=== PATIENT | female | born 1980 | race Caucasian/White ===

== ENCOUNTER → 2019-02-11 | Outpatient (REF) | payer OTHER ==
[~2019-02-11] MED LIST: MOTR200T44 PO; PRENTAB54 PO
[2019-02-11 13:40] LABS: APPEARANCE, URINE CLEAR (CLEAR); BACTERIA, URINE AUTO NEGATIVE (NEGATIVE); BILIRUBIN, URINE AUTO NEGATIVE (NEGATIVE); BLOOD, URINE BLOOD NEGATIVE (NEGATIVE); COLOR, URINE YELLOW (YELLOW); GLUCOSE, URINE (UA) AUTO NEGATIVE (NEGATIVE); KETONE, URINE AUTO NEGATIVE (NEGATIVE); LEUKOCYTE ESTERASE, URINE AUTO NEGATIVE (NEGATIVE); NITRITE, URINE AUTO NEGATIVE (NEGATIVE); PROTEIN, URINE AUTO NEGATIVE (NEGATIVE); RBC, URINE AUTO 1 /HPF (0-3); SPECIFIC GRAVITY URINE AUTO 1.006 (1.002-1.035); SQUAMOUS EPITHELIAL CELL UR AU 0 /HPF (0-6); UROBILINOGEN, URINE AUTO 0.2 mg/dL (0.0-2.0); WBC, URINE AUTO 0 /HPF (0-3)
== END ==
LOC: M LAB REF 12:53
PROVIDERS: ATTEND Family Medicine
DX: N39.0 Urinary tract infection, site not specified (principal)

== ENCOUNTER → 2019-09-11 | Outpatient (CLI) | payer OTHER ==
--- NOTE | 2019-09-11 17:25 | REP ---
OB ULTRASOUND: Real-time sonographic evaluation of gravid uterus performed. There is a single living intrauterine gestation. The estimated gestational age is 14 weeks 4 days, EDC 03/07/2020. BPD 27 mm = 14 weeks 6 days HC 104 mm = 14 weeks 6 days AC 77 mm = 14 weeks 1 day Femur length 16 mm = 14 weeks 4 days HC/AC ratio 1.34, normal range 1.11 to 1.30. Estimated weight 98 grams, 33rd percentile. Cervix closed and measures 4.4 cm in length. heart rate 139 beats per minute. There is no subchorionic hemorrhage. No maternal adnexal region abnormality is seen.
== END ==
LOC: M WHC 12:55
PROVIDERS: ATTEND Advanced Practice Midwife
DX: Z36.87 Encounter for antenatal screening for uncertain dates (principal); O09.521 Supervision of elderly multigravida, first trimester; Z3A.14 14 weeks gestation of pregnancy

== ENCOUNTER → 2019-09-17 | Outpatient (CLI) | payer OTHER | LOC: M PLALAB 10:27 | PROVIDERS: ATTEND Advanced Practice Midwife | DX: O09.512 Supervision of elderly primigravida, second trimester (principal) ==

== ENCOUNTER → 2019-10-16 | Outpatient (CLI) | payer OTHER ==
--- NOTE | 2019-12-07 10:39 | REP ---
OBSTETRIC ULTRASOUND FOR ANATOMY Delay in reporting results from malfunction of the hospital computer system as the result of a malware attack. FINDINGS: There is a single intrauterine gestation. position is variable. The placenta is posterior with grade 1 maturity. THERE IS A COMPLETE PLACENTA PREVIA. THE PLACENTA EXTENDS COMPLETELY ACROSS THE INTERNAL CERVICAL OS AND THEN ONTO THE POSTERIOR UTERINE WALL. There is no placenta abruptio. Subjectively the amniotic fluid volume is normal. The heart rate is 149 beats per minute. Cervix measures 4.0 cm in length. The composite gestational age by [facility] is 19 weeks 3 days. The estimated date of confinement (EDC) is 03/08/2020. Estimated weight is 289 grams. This is the 34th percentile. There is a question of uterine contraction in the anterior-inferior uterine segment versus fibroid. The following anatomic structures are identified and are unremarkable: Cisterna magna, cavum septum pellucidum, thalami, stomach, kidneys, right and left cardiac outflow tracts, bladder, three-vessel cord, cord insertion, upper and lower extremities, and upper lip and face. Suboptimally demonstrated because of position are the spine and four chamber view of the heart. A follow-up study dedicated to these structures might be considered. Additionally, follow-up for evaluation for placental migration is recommended. IMPRESSION: COMPLETE PLACENTA PREVIA as discussed above. Fibroid versus uterine contraction in the lower anterior uterine segment. Suboptimal demonstration of the four chamber view of the heart. MTDD
== END ==
LOC: M WHC 12:27
PROVIDERS: ATTEND Advanced Practice Midwife
DX: O09.522 Supervision of elderly multigravida, second trimester (principal)

== ENCOUNTER → 2019-11-19 | Outpatient (CLI) | payer OTHER ==
--- NOTE | 2019-12-14 11:32 | REP ---
FOLLOW-UP OBSTETRICAL ULTRASOUND CLINICAL: Anatomical follow-up evaluation. COMPARISON: 10/16/2019. FINDINGS: Ultrasound examination is limited due to body habitus and positioning. Fetus is identified in breech presentation. motion was noted. Posterior placenta again demonstrates complete placenta previa. The amniotic fluid volume is subjectively normal. heart rate equals 140 beats per minute. MEASUREMENTS: BPD 51 mm 21 weeks 4 days HC 218 mm 23 weeks 6 days AC 189 mm 23 weeks 5 days FL 41 mm 23 weeks 2 days HL 40 mm 23 weeks 2 days Estimated age by current measurements 23 weeks 1 day with estimated date of delivery 03/16/2020. Estimated weight 588 grams (8th percentile). Current examination demonstrates normal four chamber heart views and cardiac ventricular outflow tracts. The spine is again incompletely evaluated, and the technologist makes note of a possible malformation on the lower thoracic/upper lumbar level, which is not identifiable on given static images. IMPRESSION: * Single live intrauterine demonstrating relatively appropriate growth. * Complete placenta previa again noted. * Limited evaluation of the spine with suggestions for possible malformation at the lower thoracic/upper lumbar level. Follow-up is recommended. MTDD
== END ==
LOC: M WHC 10:29
PROVIDERS: ATTEND Advanced Practice Midwife
DX: Z36.89 Encounter for other specified antenatal screening (principal); Z3A.23 23 weeks gestation of pregnancy

== ENCOUNTER → 2020-02-10 | Outpatient (REF) | payer OTHER | LOC: M SFHCWAGY 17:06 | PROVIDERS: ATTEND Obstetrics & Gynecology | DX: O24.313 Unspecified pre-existing diabetes mellitus in pregnancy, third trimester (principal); Z3A.00 Weeks of gestation of pregnancy not specified ==

== ENCOUNTER 2020-02-29 07:47 | Inpatient (IN) | payer OTHER ==
[2020-02-29] VITALS (17 sets, daily range): BP systolic 107–140; BP diastolic 54–82
[~2020-02-29] VITALS: Ht 162.6 cm; Wt 99.0 kg
[2020-02-29] MEDS ORDERED: LACTATED RINGER'S 1000 ML IV STA (08:13)
[2020-02-29 10:40] LABS: HEMATOCRIT 32.7 % (36.0-47.0); HEMOGLOBIN 10.5 g/dl (12.0-15.5); MEAN CORPUSCULAR HEMOGLOBIN 28.5 pg (27.0-33.0); MEAN CORPUSCULAR HGB CONC 32.1 g/dl (32.0-36.5); MEAN CORPUSCULAR VOLUME 88.9 fl (80.0-96.0); PLATELET COUNT, AUTOMATED 248 10^3/uL (150-450); RED BLOOD COUNT 3.68 10^6/uL (4.00-5.40)
[2020-02-29] MEDS: miSOPROStol 50 MCG 1/2 TAB (S0191) PO SCH ×2 (12:01→16:08)
--- NOTE | 2020-02-29 12:24 | HPEPDOC ---
Obstetrical History & Physical General Date of Admission Feb 29, 2020 at 07:47 Primary Care Physician: SHANTE BRITT CNM History of Present Illness Sandra is a 40 y/o at 39weeks by 2nd trimester ultrasound at 14.4 weeks, JULIA 03/07/20, who presents today for IOL for Pre-existing Type 2 Diabetes and AMA. She reports active movement, no regular contractions and denies vaginal bleeding, LOF. Blood glucoses at home have been well controlled with dietary changes. History further significant for placenta previa that resolved as of 10/6 per ultrasound at [facility]. She had a recent COVID exposure and tests negative today, precautions taken as per CDC recommendations. Chief Complaint: Induction of labor (Type 2 DM, AMA) Information Provided By: Patient Age: 40 : 5 Term: 3 Pre-term: 0 Abortions: 1 Livin Care Care: Good Care Dating Final EDC: Mar 07, 2020 Final EDC by: 2nd trimester (US) (14.4 weeks) EGA at Admission: 39.0 Antepartum Course Diagnos(e)s Type 2 DM diagnosed in early Late to care at 14.4weeks. AMA Placenta previa resolved as of 10/6 per [facility] Height (inches): 64 Pre- weight (lbs.): 205 Admission Weight (lbs.): 218 Change in Weight (lbs.): 13 Past Medical History Past Obstetrical History #1: Past Obstetrical History: Primgravida Date of Delivery: Nov 27, 2008 Gestation: 41 Type of Delivery: Spontaneous Vaginal Del. Sex of : Female (7lbs 15 oz.) Past Obstetrical History #2: Past Obstetrical History: Multigravida Date of Delivery: Nov 20, 2010 Gestation: 41 Type of Delivery: Spontaneous Vaginal Del. Sex of Infant: Female (6lbs 15 oz.) Complications: No Past Obstetrical History #3: Past Obstetrical History: Multigravida Date of Delivery: Oct 06, 2013 Gestation: 40 Type of Delivery: Spontaneous Vaginal Del. Sex of : Male (7lb 6 oz.) Complications: No EYEGLASS FITTER History: Ectopic (2004), Abnormal Pap (Colposcopy done), Human papillomavirus(HPV) Past Medical History Medical History PCOS Type 2 DM diagnosed in early , diet controlled Surgical History: Diagnostic laparoscopy, Tonsilectomy Family History Significant Family History: Cancer (Mother - Unknown Type) Social History Marital Status: Single Family situation: Spouse/partner home (Life Partner Armen Ibarra) Psychosocial History: No pertinent psych hx * Smoker: non-smoker Alcohol: Denies Drugs: denies Imunizations Tdap status: current (12/29/19) Influenza Status: declined Allergies Coded Allergies: No Known Allergies (Verified , 10/25/04) Medications Scheduled Multivitamins/ ( Ad) 1 Tab Tab, 1 TAB PO DAILY Physical Examination Physical Examination GENERAL: Alert and oriented times three. ABDOMEN: Gravid and non-tender to touch. FETUS: Is vertex (VTX) by sterile vaginal examination (SVE), fetus is vertex (VTX) by Harish. EFW 7.5-8lbs. HEART RATE: Regular rate and rhythm. LUNGS: Clear to auscultation (CTA) bilaterally. No accessory muscle use. EXTREMITIES: No edema. No clonus. Deep tendon reflexes (DTRs) + 2. Laboratory Data 24H LABS Laboratory Tests 2 02/29/20 08:20: Coronavirus (COVID-19)(PCR) NEGATIVE 02/29/20 09:50: Serology Scanned Report Hepatitis B Testing 02/29/20 10:26: Nucleated Red Blood Cells % (auto) 0.0 CBC/BMP Laboratory Tests 02/29/20 10:26 Pertinent Laboratoy Data Blood Type: O+ RBC Antibody Screen: Negative HIV: Negative Hepatitis B: Negative Hepatitis C: Negative Rapid Plasma Reagin: Nonreactive Rubella: Immune Chlamydia/Gonorrhea: Negative Group B Streptococcus: Negative Glucose Tolerance Test: 139 (early 10/15/19) Diag/Inter Therapy 10/15/19--HgbA1C 4.9 11/03/19 -- 3hrGTT 84/213/188/76 Steroid Therapy Steroid Therapy: No Vaginal Examination Dilation: Fingertip Effacement: 40% Station: -3 Cervical Consistency: Soft Cervical Position: Middle Presentation: Cephalic presentation Assessment Heart Rate (FHR): 120 Variability: Moderate Accelerations: Positive Decelerations: None Tocometer Contractions: No Multi-drug resistant Organism: No history of MDRO Assessment/Plan Assessment IUP at 39weeks. Type 2 Diabetes Mellitus AMA Category 1 FHT GBS Negative Late to Care at 14.4weeks COVID Exposure, Rapid Test Negative Plan Admit and orient to Labor and Delivery. Activity as Tolerated. Diet: Diabetic Regular Diet Fingersticks 2hrs postprandial, until active labor. Group B Streptococcus (GBS) negative. Labs and intravenous (IV) per unit protocol. Counseled on Pitocin, Cytotec, Cervical Balloon, and induction of labor (IOL). Lactated Ringers (LR): Bolus 500 mL prior to epidural then per policy. Consult Anesthesia for epidural placement. Anticipate normal spontaneous delivery (). C-S as appropriate. SHANTE BRITT CNM Feb 29, 2020 12:23
[2020-02-29] MEDS ORDERED: ASPI81CH33 PO (14:44)
[2020-02-29] MEDS: LR 1,000 ML IV SCH (20:44)
[2020-02-29] MEDS ORDERED: OXYTOCIN DRIP 30 UNITS in IV 1 EA IV SCH (20:45)
--- NOTE | 2020-02-29 21:21 | IPNPDOC ---
Obstetrical Progress Note Date of Service Feb 29, 2020 Subjective Patient feeling some discomfort with contractions. Denies vaginal bleeding, LOF. Reports active movement. Objective Vital Signs Date Time Temp Pulse Resp B/P (MAP) Pulse Ox O2 Delivery O2 Flow Rate FiO2 02/29/20 20:44 76 18 107/58 (74) 02/29/20 19:56 98.2 02/29/20 10:15 99 Room Air Assessment Heart Rate (FHR): 125 Variability: Moderate Accelerations: Positive Decelerations: None Heart Rate Tracing: Category I Tocometer Contractions: Yes Frequency: regular, other (4-5min) Duration: greater than 60 seconds Strength: palpated as mild, resting tone palp/soft Sterile Vaginal Examination Dilation: 1cm Effacement (%): 50% Station: -3 Cervical Consistency: Firm Cervical Position: Middle Postion/Presentation: Cephalic presentation Assessment and Plan Age: 40 : 5 Term: 3 Pre-term: 0 Abortions: 1 Livin EGA at Admission: 39.0 Status: Reassuring Group B Streptococcus: Negative Anticipate: Vaginal Delivery Additional Comments Cook's catheter placed at 2029 with 60mL NS in uterine and 40mL in vaginal balloon, taped to leg. Patient tolerated procedure well. Plan to start Pitocin. SHANTE BRITT CNM Feb 29, 2020 21:21
[2020-02-29] MEDS ORDERED: FENTANYL 2MCG/ML ROPIVACAINE 0.2% IN 0.9% NACL 100ML IVBAG As Ordered ONE (23:26)
[2020-03-01] VITALS (77 sets, daily range): BP systolic 83–126; BP diastolic 45–72
[2020-03-01] MEDS: FENTANYL/ROPIVACAINE/NACL BAG 100 ML EPIDURAL SCH ×2 (00:26→08:27)
[2020-03-01] MEDS ORDERED: EPIDURAL COMMENT XX SCH (01:15)
[2020-03-01] MEDS ORDERED: REFRIGERATOR IV KEYS XX PRN (01:15)
[2020-03-01] MEDS ORDERED: NALOXONE INJ 0.4MG/1ML VIAL (J2310 PER 1MG) IV PRN (01:15)
[2020-03-01] MEDS ORDERED: ePHEDrine SULFATE 25 MG/5 ML(5MG/ML) SYRINGE IV PRN (01:15)
[2020-03-01] MEDS ORDERED: EPIDURAL/PCA KEYS XX PRN (01:15)
[2020-03-01] MEDS ORDERED: ONDANSETRON 4MG/2ML VIAL IV PRN ×2 (01:15→13:30)
[2020-03-01] MEDS ORDERED: LACTATED RINGER'S 1000 ML IV PRN (01:15)
[2020-03-01] MEDS ORDERED: diphenhydrAMINE 50MG/ML VIAL (J1200) IV PRN (01:15)
[2020-03-01] MEDS: LR 1,000 ML IV SCH ×2 (05:15→08:57)
[2020-03-01] MEDS: ePHEDrine SULFATE 25 MG/5 ML(5MG/ML) SYRINGE IV PRN ×2 (10:42→10:51)
--- NOTE | 2020-03-01 11:17 | IPNPDOC ---
Obstetrical Progress Note Date of Service Mar 01, 2020 Subjective Patient is comfortable with epidural. No LOF/VB. Objective Vital Signs Date Time Temp Pulse Resp B/P (MAP) Pulse Ox O2 Delivery O2 Flow Rate FiO2 03/01/20 10:20 73 20 109/59 (76) 03/01/20 09:37 03/01/20 07:30 Room Air 03/01/20 07:29 98.8 Assessment Heart Rate Tracing: Category I Tocometer Contractions: Yes Frequency: every 2-5 min. Sterile Vaginal Examination Dilation: 5 cm Effacement (%): 80% Station: 0 Cervical Consistency: Soft Cervical Position: Anterior Postion/Presentation: Cephalic presentation Assessment and Plan Age: 40 : 5 Term: 3 Pre-term: 0 Abortions: 1 Livin EGA at Admission: 39 (+1) Status: Reassuring Group B Streptococcus: Negative Anticipate: Vaginal Delivery Additional Comments Reassuring maternal and status AROM, clear fluid Continue ANN Rondon DO Mar 01, 2020 11:17
[2020-03-01] MEDS ORDERED: OXYTOCIN DRIP 30 UNITS in IV 1 EA IV SCH (13:26)
[2020-03-01] MEDS ORDERED: LR 1,000 ML IV SCH (13:26)
[2020-03-01] MEDS ORDERED: RHOGAM 300 MCG (1500 IU) INJ (J2790) IM SCH (13:30)
[2020-03-01] MEDS ORDERED: MEASLES,MUMPS,RUBELLA VACCINE INJ (MMR-II) (90707) SC SCH (13:30)
[2020-03-01] MEDS ORDERED: BENZOCAINE 20% HEMORRHOIDAL OINTMENT 28GM TUBE TOP PRN (13:30)
[2020-03-01] MEDS ORDERED: ACETAMINOPHEN TAB 650MG DOSE (2X325MG) PO PRN (13:30)
[2020-03-01] MEDS ORDERED: PROMETHAZINE 25 MG TAB PO PRN (13:30)
[2020-03-01] MEDS ORDERED: DOCUSATE SODIUM 100MG CAPSULE PO PRN (13:30)
[2020-03-01] MEDS ORDERED: IBUPROFEN 600MG TAB PO PRN (13:30)
--- NOTE | 2020-03-01 13:44 | DNPDOC ---
[facility] Delivery Note Delivery Note DATE OF DELIVERY: 03/01/2020 TIME OF DELIVERY: 1245 Spontaneous vaginal delivery. CHEMICAL DEPENDENCY ATTENDANT: Dr. Zane Casey DO FACOG ANESTHESIA: Epidural. LACERATION: None ESTIMATED BLOOD LOSS: 200 mL. FINDINGS: 6 pound 6 ounce (2880 g). Female infant, Score, 8 and 9. DELIVERY SUMMARY: The active phase and second stage of labor progressed in normal fashion.. She received Pitocin augmentation throughout her labor course. The head delivered in the ROSALBA position, and restituted ROT. No nuchal cord was noted. The anterior shoulder delivered with gentle downward guidance and the remainder of the body delivered with ease. The baby was placed on the patient's chest. Delayed cord clamping occurred for approximately 1 minute. The cord was then doubly clamped and cut. IV Pitocin was bolused to actively manage the third stage of labor. The placenta delivered intact without any difficulty within 10 minutes of delivery. The uterine fundus was noted to be firm and 2 cm below the umbilicus. The cervix, vagina, vulva and perineum were inspected.. No laceration was noted. Excellent hemostasis was noted. Sponge, needle and instrument counts were correct per protocol. DO JEAN Lucas JONATHAN R. DO Mar 01, 2020 13:44
[2020-03-01] MEDS ORDERED: SLF 3 ML SYR IV PRN (15:00)
[2020-03-01] MEDS: SLF 3 ML SYR IV SCH (22:00)
[2020-03-01] MEDS: ACETAMINOPHEN 500 MG TAB PO PRN (23:15)
[2020-03-02 06:00] VITALS: BP 110/69
[2020-03-02] MEDS: SLF 3 ML SYR IV SCH (06:02)
--- NOTE | 2020-03-02 07:13 | IPNPDOC ---
Progress Note Date of Service: Mar 02, 2020 Day#: 1 Progress Note SUBJECT: Status post . She has been ambulating, voiding spontaneously without issue and tolerating regular diet. Lochia decreasing/minimal. Patient is ambulating well. OBJECTIVE: VITAL SIGNS: Within normal limits, afebrile. Alert and oriented times three. Abdomen: Fundus firm at U-2. Soft, NTTP. ASSESSMENT: Status post uncomplicated spontaneous vaginal delivery. Vitals within normal limits, afebrile, hemodynamically stable with no evidence of infection. PLAN: Tylenol and Motrin for pain. Routine instructions/precautions reviewed. Routine PP visit in 6 weeks in clinic. VS, I&O, 24H, Fishbone Vital Signs/I&O Vital Signs Date Time Temp Pulse Resp B/P (MAP) Pulse Ox O2 Delivery O2 Flow Rate FiO2 03/02/20 06:00 96.8 56 18 110/69 (83) 100 Room Air I&O- Last 24 Hours up to 6 AM 03/02/20 06:00 Intake Total 2910 ml Output Total 1700 ml Balance 1210 ml Laboratory Data 24H LABS Laboratory Tests 2 03/01/20 11:26: Bedside Glucose (Misc Panel) 76 ANN MONTANEZ DO Mar 02, 2020 07:13
[2020-03-02] MEDS: IBUPROFEN 800 MG TAB PO PRN ×2 (08:50→20:33)
[2020-03-02] MEDS: PRENATAL VITAMINS CHEWABLE TABLET PO SCH (08:50)
[2020-03-02] MEDS: ACETAMINOPHEN 500 MG TAB PO PRN (17:26)
[2020-03-02 17:46] VITALS: BP 130/72
[2020-03-03 06:00] VITALS: BP 138/79
[2020-03-03] MEDS: IBUPROFEN 800 MG TAB PO PRN (07:41)
[2020-03-03] MEDS: PRENATAL VITAMINS CHEWABLE TABLET PO SCH (08:54)
[2020-03-03] MEDS: ACETAMINOPHEN 500 MG TAB PO PRN (08:57)
== END 2020-03-03 11:30 | disposition home or self-care (01) | DRG 560 ==
LOC: M LDI 07:47 → M OBS 03-01 15:54
PROVIDERS: ADMIT Advanced Practice Midwife; ATTEND Obstetrics & Gynecology
PROC: 3E0P7GC Introduction of Other Therapeutic Substance into Female Reproductive, Via Natural or Artificial Opening (ICD-10-PCS; 2020-02-29)
PROC: 10E0XZZ Delivery of Products of Conception, External Approach (ICD-10-PCS; principal; 2020-03-01)
DX: O24.420 Gestational diabetes mellitus in childbirth, diet controlled (principal); Z3A.39 39 weeks gestation of pregnancy; Z20.828 Contact with and (suspected) exposure to other viral communicable diseases; Z37.0 Single live birth

== ENCOUNTER → 2020-06-08 | Outpatient (REF) | payer OTHER ==
[~2020-06-08] MED LIST changes: +ASPI81CH33 PO
== END ==
LOC: M SFHCWAGY 19:08
PROVIDERS: ATTEND Obstetrics & Gynecology
DX: Z12.4 Encounter for screening for malignant neoplasm of cervix (principal)
CPT/HCPCS: 87624; G0123

== ENCOUNTER → 2020-06-28 | Outpatient (REF) | payer OTHER | LOC: M SFHCWAGY 17:00 | PROVIDERS: ATTEND Obstetrics & Gynecology | DX: N87.0 Mild cervical dysplasia (principal) ==

== ENCOUNTER → 2020-10-13 | Outpatient (REF) | payer MEDICAID, OTHER ==
[2020-10-13 18:32] LABS: APPEARANCE, URINE CLEAR (CLEAR); BACTERIA, URINE AUTO NEGATIVE (NEGATIVE); BILIRUBIN, URINE AUTO NEGATIVE (NEGATIVE); BLOOD, URINE BLOOD 1+ (NEGATIVE); COLOR, URINE STRAW (YELLOW); GLUCOSE, URINE (UA) AUTO NEGATIVE (NEGATIVE); KETONE, URINE AUTO NEGATIVE (NEGATIVE); LEUKOCYTE ESTERASE, URINE AUTO 2+ (NEGATIVE); NITRITE, URINE AUTO NEGATIVE (NEGATIVE); PROTEIN, URINE AUTO NEGATIVE (NEGATIVE); RBC, URINE AUTO 1 /HPF (0-3); SPECIFIC GRAVITY URINE AUTO 1.003 (1.002-1.035); SQUAMOUS EPITHELIAL CELL UR AU 3 /HPF (0-6); UROBILINOGEN, URINE AUTO 0.2 mg/dL (0.0-2.0); WBC, URINE AUTO 12 /HPF (0-3)
== END ==
LOC: M LAB REF 18:02
PROVIDERS: ATTEND Nurse Practitioner Family
DX: R30.0 Dysuria (principal)

== ENCOUNTER → 2022-04-06 | Outpatient (CLI) | payer OTHER ==
[2022-04-06 14:50] LABS: CHOLESTEROL RISK RATIO 5.56 (<5); HDL CHOLESTEROL 37.9 MG/DL (>40); LDL CHOLESTEROL 152.5 MG/DL (<100)
[2022-04-06 14:53] LABS: THYROID STIMULATING HORMONE 3.101 uIU/ML (0.55-4.78)
[2022-04-06 15:40] LABS: HEMOGLOBIN A1c 4.8 % (4.0-6.0)
== END ==
LOC: M PLALAB 10:15
PROVIDERS: ATTEND Obstetrics & Gynecology
DX: Z12.4 Encounter for screening for malignant neoplasm of cervix (principal); E28.2 Polycystic ovarian syndrome
CPT/HCPCS: 36415; 80061; 83036; 84443; 87624; G0123

== ENCOUNTER → 2022-11-01 | Outpatient (CLI) | payer OTHER ==
[~2022-11-01] MED LIST changes: +CEPH500C PO
== END ==
LOC: M RAD 06:38
PROVIDERS: ATTEND Surgery Vascular Surgery
DX: I87.2 Venous insufficiency (chronic) (peripheral) (principal)

== ENCOUNTER → 2022-12-24 | Outpatient (CLI) | payer OTHER ==
[~2022-12-24] MED LIST changes: +ASPI81TA26 PO; +CHOL125C5 PO; +ESTA0.25 PO; +LIDOCAINE 1% MDV 20ML VIAL As Ordered ONE; +LIDOCAINE W/EPINEPHRINE 1% 20ML VIAL As Ordered ONE; +METF500T13 PO; +MIDAZOLAM INJ 2MG/2ML VIAL As Ordered ONE; +NS 1,000 ML IV SCH; +SODIUM BICARBONATE 8.4% INJ 50MEQ 50ML VIAL As Ordered ONE; +fentaNYL 100 MCG/2 ML INJECTION As Ordered ONE
[2022-12-24 07:45] VITALS: TEMP 97.8
[2022-12-24 12:00] VITALS: BP 121/56; O2SAT 97
== END ==
LOC: M IRPRO 07:22
PROVIDERS: ATTEND Surgery Vascular Surgery
DX: I83.813 Varicose veins of bilateral lower extremities with pain (principal)
CPT/HCPCS: 36475; 99152; 99153; C1729; C1888; J2250; J3010

== ENCOUNTER → 2022-12-27 | Outpatient (CLI) | payer OTHER ==
[~2022-12-27] MED LIST changes: -LIDOCAINE 1% MDV 20ML VIAL As Ordered ONE; -LIDOCAINE W/EPINEPHRINE 1% 20ML VIAL As Ordered ONE; -MIDAZOLAM INJ 2MG/2ML VIAL As Ordered ONE; -NS 1,000 ML IV SCH; -SODIUM BICARBONATE 8.4% INJ 50MEQ 50ML VIAL As Ordered ONE; -fentaNYL 100 MCG/2 ML INJECTION As Ordered ONE
== END ==
LOC: M WHC 12:31
PROVIDERS: ATTEND Surgery Vascular Surgery
DX: I87.2 Venous insufficiency (chronic) (peripheral) (principal); I83.812 Varicose veins of left lower extremity with pain; I80.02 Phlebitis and thrombophlebitis of superficial vessels of left lower extremity

== ENCOUNTER → 2023-01-01 | Outpatient (CLI) | payer OTHER | LOC: M IRPRO 10:34 | PROVIDERS: ATTEND Orthopaedic Surgery | DX: M70.62 Trochanteric bursitis, left hip (principal) ==

== ENCOUNTER → 2023-01-16 | Outpatient (CLI) | payer OTHER | LOC: M WHC 07:40 | PROVIDERS: ATTEND Surgery Vascular Surgery | DX: I83.812 Varicose veins of left lower extremity with pain (principal) ==

== ENCOUNTER 2023-05-15 22:22 | Emergency (ER) | payer OTHER ==
[2023-05-15 22:52] LABS: APPEARANCE, URINE CLEAR (CLEAR); BACTERIA, URINE AUTO NEGATIVE (NEGATIVE); BILIRUBIN, URINE AUTO NEGATIVE (NEGATIVE); BLOOD, URINE BLOOD 1+ (NEGATIVE); COLOR, URINE STRAW (YELLOW); GLUCOSE, URINE (UA) AUTO NEGATIVE (NEGATIVE); KETONE, URINE AUTO NEGATIVE (NEGATIVE); LEUKOCYTE ESTERASE, URINE AUTO NEGATIVE (NEGATIVE); NITRITE, URINE AUTO NEGATIVE (NEGATIVE); PROTEIN, URINE AUTO NEGATIVE (NEGATIVE); RBC, URINE AUTO 0 /HPF (0-3); SPECIFIC GRAVITY URINE AUTO 1.003 (1.002-1.035); SQUAMOUS EPITHELIAL CELL UR AU 1 /HPF (0-6); UROBILINOGEN, URINE AUTO 0.2 mg/dL (0.0-2.0); WBC, URINE AUTO 0 /HPF (0-3)
[2023-05-15 23:35] LABS: URINE PREG TEST NEGATIVE (NEGATIVE)
[2023-05-16 00:39] VITALS: BP 131/74; TEMP 98.6; O2SAT 100
[2023-05-16] MEDS: ONDANSETRON 4MG 2ML VIAL IV ONE (02:25)
[2023-05-16] MEDS: METHOCARBAMOL 1,000 MG/10 ML VIAL IV ONE (02:25)
[2023-05-16] MEDS: NS 1,000 ML IV ONE (02:45)
[2023-05-16] MEDS: KETOROLAC 30 MG/ML 1ML VIAL IV ONE (02:49)
[2023-05-16] MEDS ORDERED: METH-1165 PO (03:43)
[2023-05-16] MEDS ORDERED: KETO10TAB PO (03:43)
== END 2023-05-16 04:43 | disposition home or self-care (01) ==
LOC: M ED 22:22
DX: M54.50 Low back pain, unspecified (principal); Z79.3 Long term (current) use of hormonal contraceptives; Z79.84 Long term (current) use of oral hypoglycemic drugs; Z79.899 Other long term (current) drug therapy
CPT/HCPCS: 81001; 84703; 96374; 96375; 99284; J1885; J2405; J2800

== ENCOUNTER → 2023-05-21 | Outpatient (CLI) | payer OTHER ==
[~2023-05-21] MED LIST changes: +KETO10TAB PO; +METH-1165 PO
== END ==
LOC: M SOG 08:01
PROVIDERS: ATTEND Orthopaedic Surgery
DX: M54.50 Low back pain, unspecified (principal)

== ENCOUNTER → 2023-06-05 | Outpatient (CLI) | payer OTHER | LOC: M PLAIMG 09:01 | PROVIDERS: ATTEND Orthopaedic Surgery | DX: M54.50 Low back pain, unspecified (principal); M47.816 Spondylosis without myelopathy or radiculopathy, lumbar region; M47.817 Spondylosis without myelopathy or radiculopathy, lumbosacral region; M71.38 Other bursal cyst, other site ==

== ENCOUNTER → 2023-06-07 | Outpatient (CLI) | payer OTHER ==
[~2023-06-07] MED LIST changes: +LIDOCAINE 1% MDV 20ML VIAL As Ordered ONE; +methylPREDNISolone SUSP 40MG/ML 1ML VIAL (DEPO MEDROL) As Ordered ONE
== END ==
LOC: M IRPRO 10:05
PROVIDERS: ATTEND Orthopaedic Surgery
DX: M70.62 Trochanteric bursitis, left hip (principal)
CPT/HCPCS: 20611; J0665; J1030

== ENCOUNTER → 2024-02-07 | Outpatient (CLI) | payer OTHER ==
[~2024-02-07] MED LIST changes: +E-Z-GAS II EFFERVESCENT PACKET (SODIUM BICARB./CITRIC ACID/SIMETHICONE) As Ordered ONE; +E-Z-HD 98% w/w 340GM SUSP BTL As Ordered ONE; +E-Z-PAQUE 96% w/w SUSP 176GM BTL As Ordered ONE; -LIDOCAINE 1% MDV 20ML VIAL As Ordered ONE; -methylPREDNISolone SUSP 40MG/ML 1ML VIAL (DEPO MEDROL) As Ordered ONE
== END ==
LOC: M RAD 08:42
PROVIDERS: ATTEND Nurse Practitioner Family
DX: R10.13 Epigastric pain (principal); K44.9 Diaphragmatic hernia without obstruction or gangrene

== ENCOUNTER → 2024-09-23 | Outpatient (REF) | payer OTHER ==
[~2024-09-23] MED LIST changes: +CEFD1CAP9 PO; -E-Z-GAS II EFFERVESCENT PACKET (SODIUM BICARB./CITRIC ACID/SIMETHICONE) As Ordered ONE; -E-Z-HD 98% w/w 340GM SUSP BTL As Ordered ONE; -E-Z-PAQUE 96% w/w SUSP 176GM BTL As Ordered ONE
== END ==
LOC: M LAB REF 16:50
PROVIDERS: ATTEND Registered Nurse
DX: R35.0 Frequency of micturition (principal)

== ENCOUNTER → 2024-11-09 | Outpatient (CLI) | payer OTHER ==
[2024-11-09 12:41] LABS: PLATELET COUNT, AUTOMATED 266 10^3/uL (150-450)
[2024-11-09 12:53] LABS: INR 1.0
[2024-11-09 13:38] LABS: ALT/SGPT 68 U/L (7.0-40); AST/SGOT 55 U/L (<34); CALCIUM LEVEL 10.2 MG/DL (8.5-10.1); CARBON DIOXIDE LEVEL 24 MMOL/L (20-31); CHLORIDE LEVEL 105 MMOL/L (98-107); CREATININE FOR GFR 0.79 MG/DL (0.55-1.30); GLOMERULAR FILTRATION RATE > 90.0 (>58); POTASSIUM SERUM 4.6 MMOL/L (3.5-5.1); SODIUM LEVEL 142 MMOL/L (136-145)
== END ==
LOC: M PLALAB 11:57
PROVIDERS: ATTEND Physician Assistant
DX: R79.89 Other specified abnormal findings of blood chemistry (principal)

== ENCOUNTER → 2024-11-24 | Outpatient (CLI) | payer OTHER | LOC: M RAD 08:00 | PROVIDERS: ATTEND Physician Assistant | DX: K76.0 Fatty (change of) liver, not elsewhere classified (principal); I70.0 Atherosclerosis of aorta; R16.0 Hepatomegaly, not elsewhere classified; R93.2 Abnormal findings on diagnostic imaging of liver and biliary tract ==

== ENCOUNTER → 2025-01-21 | Outpatient (CLI) | payer OTHER ==
[2025-01-21 13:24] LABS: ALT/SGPT 31.0 U/L (7.0-40); AST/SGOT 24.0 U/L (<34)
== END ==
LOC: M PLALAB 10:02
PROVIDERS: ATTEND Physician Assistant
DX: R79.89 Other specified abnormal findings of blood chemistry (principal)

== ENCOUNTER → 2025-02-25 | Outpatient (CLI) | payer OTHER ==
[2025-02-25 17:38] LABS: ALT/SGPT 32.0 U/L (7.0-40); AST/SGOT 31.0 U/L (<34)
== END ==
LOC: M PLALAB 15:26
PROVIDERS: ATTEND Physician Assistant
DX: R79.89 Other specified abnormal findings of blood chemistry (principal)

== ENCOUNTER → 2025-02-26 | Outpatient (CLI) | payer OTHER | LOC: M RAD 07:36 | PROVIDERS: ATTEND Physician Assistant | DX: D18.09 Hemangioma of other sites (principal) ==